=== PATIENT | male | born 1930 | race Caucasian/White ===

== ENCOUNTER 2019-10-03 16:58 | Observation (INO) | payer OTHER ==
[~2019-10-03] VITALS: Ht 175.3 cm; Wt 71.5 kg
[~2019-10-03 16:58] MED LIST: ACET325 PO; ASPI81CH PO; ATOR40TA PO; BENTYL20 MG PO; Bentyl20 MG PO; Colace100 MG PO; Colace250 MG PO; Dicyclomine HCl10 MG PO; Enulose10 GM/15 M PO; GABA100 PO; GLYCAS PR; HYDPAM50 PO; ISOMON20; ISOMON20 PO; METSALMENC; NITR.4SL SL; OMEP20ER PO; OXYC10ER; OXYC5 PO; Protonix40 MG PO; RANI150 PO; SENN187 PO; TAMS.4ER PO; TRIA80TC TOP; VALS80 PO; Zofran Odt4 MG SL; Zovirax400 MG PO
[2019-10-03] MEDS ORDERED: ACET500 PO (17:15)
[2019-10-03] MEDS ORDERED: ATOR40TA PO (17:15)
[2019-10-03] MEDS ORDERED: ASCO500 PO (17:15)
[2019-10-03] MEDS ORDERED: PLAVIX75 MG PO (17:16)
[2019-10-03] MEDS ORDERED: CARB10OTL BOTHEARS (17:16)
[2019-10-03] MEDS ORDERED: ERGO400 PO (17:16)
[2019-10-03] MEDS ORDERED: Dicyclomine HCl10 MG PO (17:17)
[2019-10-03] MEDS ORDERED: Vitamin B-12100 MCG PO (17:17)
[2019-10-03 17:18] LABS: BASOPHILS ABSOLUTE AUTO 0.04 K/mm3 (0.00-0.23); BASOPHILS PERCENT AUTO 1 % (0-2); EOSINOPHILS ABSOLUTE AUTO 0.18 K/mm3 (0.00-0.68); EOSINOPHILS PERCENT AUTO 2 % (0-6); Hematocrit 37.5 % (37.0-53.0); Hemoglobin 11.9 g/dL (13.5-17.5); IMMATURE GRAN ABSOLUTE AUTO 0.02 K/mm3 (0.00-0.10); IMMATURE GRAN PERCENT AUTO 0 % (0-1); LYMPHOCYTES ABSOLUTE AUTO 2.39 K/mm3 (0.84-5.20); LYMPHOCYTES PERCENT AUTO 30 % (21-46); MONOCYTES ABSOLUTE AUTO 0.66 K/mm3 (0.16-1.47); MONOCYTES PERCENT AUTO 8 % (4-13); Mean Corpuscular HGB 30.2 pg (26.0-34.0); Mean Corpuscular HGB Conc 31.7 g/dL (31.5-36.5); Mean Corpuscular Volume 95 fL (80-100); Mean Platelet Volume 10.3 fL (9.1-12.4); NEUTROPHILS ABSOLUTE AUTO 4.79 K/mm3 (1.96-9.15); NEUTROPHILS PERCENT AUTO 59 % (41-73); Platelet Count 149 K/mm3 (150-400); RDW Coefficient Variation 13.4 % (11.7-14.2); RDW Standard Deviation 47.1 fL (35.1-46.3); Red Blood Cell Count 3.94 M/mm3 (4.30-5.90); White Blood Cell Count 8.08 K/mm3 (4.00-11.30)
[2019-10-03] MEDS ORDERED: GABA300 PO ×2 (17:18→17:19)
[2019-10-03] MEDS ORDERED: Flonase 0.05% N16 GM (17:18)
[2019-10-03] MEDS ORDERED: Docusate Sodiu100 M1 PO (17:18)
[2019-10-03] MEDS ORDERED: LOSA25 PO (17:19)
[2019-10-03] MEDS ORDERED: Isosorbide Mono30 MG PO (17:19)
[2019-10-03] MEDS ORDERED: SENN187 PO (17:20)
[2019-10-03] MEDS ORDERED: PANT20 PO (17:20)
[2019-10-03] MEDS ORDERED: Preservision A1 EACH PO (17:20)
[2019-10-03] MEDS ORDERED: SERT25 PO (17:20)
[2019-10-03] MEDS ORDERED: TROSPIUM CHLORI20 MG PO (17:21)
[2019-10-03] MEDS ORDERED: ZOLPIDEM TARTRAT5 MG PO (17:21)
[2019-10-03 17:37] LABS: Alanine Aminotransfer (ALT/SGP 18 U/L (12-78); Albumin, Blood 3.5 g/dL (3.4-5.0); Albumin/Globulin Ratio 1.1 (0.8-1.8); Alk Phos 140 U/L (50-136); Anion Gap 4 mmol/L (6-16); Aspartate Aminotrans (AST/SGOT 27 U/L (12-37); Bilirubin, Total 0.6 mg/dL (0.1-1.0); Blood Urea Nitrogen 22 mg/dL (8-24); Bun/Creatinine Ratio 22.9 (12.0-20.0); CO2, Blood 30 mmol/L (21-32); Calcium, Blood 8.7 mg/dL (8.5-10.1); Chloride, Blood 104 mmol/L (98-108); Creatinine, Blood 0.96 mg/dL (0.60-1.20); Globulin, Blood 3.2 g/dL (2.2-4.0); Glomerular Filtration Rate >60 (60-); Glucose, Blood 88 mg/dL (70-99); Potassium, Blood 4.3 mmol/L (3.5-5.5); Sodium, Blood 138 mmol/L (136-145); Total Protein, Blood 6.7 g/dL (6.4-8.2); Troponin I <0.015 ng/mL (0.000-0.040)
[2019-10-03 17:46] LABS: Source, Urine Clean Catch
[2019-10-03 17:49] LABS: Bilirubin, Urine Neg (Neg); Blood, Urine Neg (Neg); Glucose Qualitative, Urine Neg (Neg); Ketones, Urine Neg (Neg); Leukocyte Esterase, Urine 1+ (Neg); Nitrite, Urine Neg (Neg); Protein, Urine Neg (Neg); Specific Gravity, Urine 1.005 (1.003-1.022); Urobilinogen, Urine NORM (Normal)
[2019-10-03 17:57] LABS: Appearance, Urine Clear (Clear); Color, Urine Yellow (P-Yellow)
[2019-10-03 17:59] LABS: Bacteria Few /hpf; Red Blood Cells, Urine 0-2 /hpf (0-2); Squamous Epithelial Cells Few /hpf (Few); White Blood Cells, Urine 0-2 /hpf (0-5)
[2019-10-03 19:23] LABS: International Normalized Ratio 0.97; Prothrombin Time Results 10.4 Sec (9.7-11.5)
[2019-10-03] MEDS ORDERED: LIDO700A20 TOP (19:24)
[2019-10-03] MEDS ORDERED: TRIA15CR3 TOP (19:25)
[2019-10-03] MEDS ORDERED: NARCAN4 MG (19:26)
[2019-10-03] MEDS ORDERED: VANICREAM453 GM TOP (19:27)
[2019-10-04 03:15] LABS: Anion Gap 3 mmol/L (6-16); Blood Urea Nitrogen 19 mg/dL (8-24); CO2, Blood 31 mmol/L (21-32); Chloride, Blood 108 mmol/L (98-108); Creatinine, Blood 0.83 mg/dL (0.60-1.20); Glomerular Filtration Rate >60 (60-); Glucose, Blood 97 mg/dL (70-99); Potassium, Blood 3.8 mmol/L (3.5-5.5); Sodium, Blood 142 mmol/L (136-145)
[2019-10-05] MEDS ORDERED: CARB10OTL BOTHEARS (15:37)
[2019-10-05] MEDS ORDERED: ALMACONE SUSPE355 ML PO (15:40)
== END 2019-10-05 18:45 | disposition home or self-care (01) ==
LOC: ER 16:58 → PCU 16:59 → MEDS 10-04 11:36
PROVIDERS: Physician Assistant; ADMIT Internal Medicine
DX: I44.0 Atrioventricular block, first degree (principal); R07.9 Chest pain, unspecified; R82.90 Unspecified abnormal findings in urine; I10 Essential (primary) hypertension; E78.5 Hyperlipidemia, unspecified; F32.9 Major depressive disorder, single episode, unspecified; Z86.73 Personal history of transient ischemic attack (TIA), and cerebral infarction without residual deficits; Z88.8 Allergy status to other drugs, medicaments and biological substances; Z79.899 Other long term (current) drug therapy; Z79.02 Long term (current) use of antithrombotics/antiplatelets; Z79.51 Long term (current) use of inhaled steroids
CPT/HCPCS: 36415; 71046; 78452; 80048; 80053; 81001; 84484; 85025; 85610; 85730; 87086; 93005; 93010; 93017; 93306; 96365; 96375; 96376; 99285-25; A9270; A9270-GY; A9500; C9113; G0378; J0696; J0706; J1644; J2785

== ENCOUNTER 2020-07-18 14:23 | Emergency (ER) | payer OTHER ==
[~2020-07-18] VITALS: Ht 175.3 cm; Wt 56.7 kg
[~2020-07-18 14:23] MED LIST changes: +ACET500 PO; +ALMACONE SUSPE355 ML PO; +ASCO500 PO; +CARB10OTL BOTHEARS; +Docusate Sodiu100 M1 PO; +ERGO400 PO; +Flonase 0.05% N16 GM; +GABA300 PO; +Isosorbide Mono30 MG PO; +LIDO700A20 TOP; +LOSA25 PO; +NARCAN4 MG; +PANT20 PO; +PLAVIX75 MG PO; +Preservision A1 EACH PO; +SERT25 PO; +TRIA15CR3 TOP; +TROSPIUM CHLORI20 MG PO; +VANICREAM453 GM TOP; +Vitamin B-12100 MCG PO; +ZOLPIDEM TARTRAT5 MG PO
== END 2020-07-18 16:10 | disposition home or self-care (01) ==
LOC: ER 14:23
DX: T16.2XXA Foreign body in left ear, initial encounter (principal); K21.9 Gastro-esophageal reflux disease without esophagitis; I25.10 Atherosclerotic heart disease of native coronary artery without angina pectoris; Z88.8 Allergy status to other drugs, medicaments and biological substances; Z79.02 Long term (current) use of antithrombotics/antiplatelets; Z79.899 Other long term (current) drug therapy
CPT/HCPCS: 70486; 99283-25

== ENCOUNTER 2021-01-30 13:29 | Emergency (ER) | payer MEDICARE ==
[~2021-01-30] VITALS: Ht 175.3 cm; Wt 65.8 kg
[2021-01-30 14:21] LABS: BASOPHILS ABSOLUTE AUTO 0.02 K/mm3 (0.00-0.23); BASOPHILS PERCENT AUTO 0 % (0-2); EOSINOPHILS ABSOLUTE AUTO 0.06 K/mm3 (0.00-0.68); EOSINOPHILS PERCENT AUTO 1 % (0-6); Hematocrit 40.1 % (37.0-53.0); Hemoglobin 12.6 g/dL (13.5-17.5); IMMATURE GRAN ABSOLUTE AUTO 0.02 K/mm3 (0.00-0.10); IMMATURE GRAN PERCENT AUTO 0 % (0-1); LYMPHOCYTES ABSOLUTE AUTO 1.08 K/mm3 (0.84-5.20); LYMPHOCYTES PERCENT AUTO 14 % (21-46); MONOCYTES PERCENT AUTO 8 % (4-13); Mean Corpuscular HGB 29.3 pg (26.0-34.0); Mean Corpuscular HGB Conc 31.4 g/dL (31.5-36.5); Mean Corpuscular Volume 93 fL (80-100); Mean Platelet Volume 10.2 fL (9.1-12.4); NEUTROPHILS ABSOLUTE AUTO 5.82 K/mm3 (1.96-9.15); NEUTROPHILS PERCENT AUTO 77 % (41-73); Platelet Count 163 K/mm3 (150-400); RDW Coefficient Variation 13.8 % (11.7-14.2); RDW Standard Deviation 46.8 fL (35.1-46.3)
[2021-01-30 14:37] LABS: Alanine Aminotransfer (ALT/SGP 25 U/L (12-78); Albumin, Blood 3.5 g/dL (3.4-5.0); Albumin/Globulin Ratio 0.9 (0.8-1.8); Alk Phos 140 U/L (50-136); Anion Gap 4 mmol/L (6-16); Aspartate Aminotrans (AST/SGOT 24 U/L (12-37); Bilirubin, Total 0.8 mg/dL (0.1-1.0); Blood Urea Nitrogen 17 mg/dL (8-24); Bun/Creatinine Ratio 18.8 (12.0-20.0); CO2, Blood 31 mmol/L (21-32); Calcium, Blood 9.1 mg/dL (8.5-10.1); Chloride, Blood 106 mmol/L (98-108); Globulin, Blood 3.8 g/dL (2.2-4.0); Glomerular Filtration Rate >60 (60-); Glucose, Blood 96 mg/dL (70-99); Potassium, Blood 3.9 mmol/L (3.5-5.5); Sodium, Blood 141 mmol/L (136-145); Total Protein, Blood 7.3 g/dL (6.4-8.2)
[2021-01-30] MEDS ORDERED: DIAZ2 PO (14:50)
== END 2021-01-30 16:09 | disposition home or self-care (01) ==
LOC: ER 13:29
PROVIDERS: Emergency Medicine
DX: G25.3 Myoclonus (principal); I25.10 Atherosclerotic heart disease of native coronary artery without angina pectoris; K21.9 Gastro-esophageal reflux disease without esophagitis; D64.9 Anemia, unspecified; E78.5 Hyperlipidemia, unspecified; Z88.8 Allergy status to other drugs, medicaments and biological substances; Z79.899 Other long term (current) drug therapy; Z79.02 Long term (current) use of antithrombotics/antiplatelets; Z86.73 Personal history of transient ischemic attack (TIA), and cerebral infarction without residual deficits
CPT/HCPCS: 80053; 85025; 99284

== ENCOUNTER 2021-09-09 12:47 | Emergency (ER) | payer OTHER ==
[~2021-09-09] VITALS: Ht 175.3 cm; Wt 65.8 kg
[~2021-09-09 12:47] MED LIST changes: +DIAZ2 PO
[2021-09-09 15:09] LABS: BASOPHILS ABSOLUTE AUTO 0.01 K/mm3 (0.00-0.23); BASOPHILS PERCENT AUTO 0 % (0-2); EOSINOPHILS PERCENT AUTO 0 % (0-6); Hematocrit 39.7 % (37.0-53.0); Hemoglobin 12.5 g/dL (13.5-17.5); IMMATURE GRAN ABSOLUTE AUTO 0.04 K/mm3 (0.00-0.10); IMMATURE GRAN PERCENT AUTO 1 % (0-1); LYMPHOCYTES ABSOLUTE AUTO 1.51 K/mm3 (0.84-5.20); LYMPHOCYTES PERCENT AUTO 18 % (21-46); MONOCYTES PERCENT AUTO 6 % (4-13); Mean Corpuscular HGB 29.8 pg (26.0-34.0); Mean Corpuscular HGB Conc 31.5 g/dL (31.5-36.5); Mean Corpuscular Volume 95 fL (80-100); Mean Platelet Volume 10.3 fL (9.1-12.4); NEUTROPHILS ABSOLUTE AUTO 6.54 K/mm3 (1.96-9.15); NEUTROPHILS PERCENT AUTO 76 % (41-73); Platelet Count 130 K/mm3 (150-400); RDW Coefficient Variation 13.5 % (11.7-14.2); RDW Standard Deviation 46.8 fL (35.1-46.3)
[2021-09-09 15:27] LABS: Alanine Aminotransfer (ALT/SGP 21 U/L (12-78); Albumin, Blood 3.5 g/dL (3.4-5.0); Albumin/Globulin Ratio 0.9 (0.8-1.8); Alk Phos 76 U/L (50-136); Anion Gap 11 mmol/L (6-16); Aspartate Aminotrans (AST/SGOT 37 U/L (12-37); Blood Urea Nitrogen 24 mg/dL (8-24); Bun/Creatinine Ratio 25.1 (12.0-20.0); CO2, Blood 25 mmol/L (21-32); Calcium, Blood 9.3 mg/dL (8.5-10.1); Chloride, Blood 106 mmol/L (98-108); Creatinine, Blood 0.96 mg/dL (0.60-1.20); Globulin, Blood 3.9 g/dL (2.2-4.0); Glomerular Filtration Rate >60 (60-); Glucose, Blood 102 mg/dL (70-99); Potassium, Blood 3.9 mmol/L (3.5-5.5); Sodium, Blood 142 mmol/L (136-145); Total Protein, Blood 7.4 g/dL (6.4-8.2)
[2021-09-09] MEDS ORDERED: NITR.4SL SL (16:29)
[2021-09-09] MEDS ORDERED: MIRALAX17 GM PO (16:30)
== END 2021-09-09 18:45 | disposition home or self-care (01) ==
LOC: ER 12:47
PROVIDERS: Emergency Medicine
DX: K52.9 Noninfective gastroenteritis and colitis, unspecified (principal); K21.9 Gastro-esophageal reflux disease without esophagitis; Z79.899 Other long term (current) drug therapy; Z88.8 Allergy status to other drugs, medicaments and biological substances
CPT/HCPCS: 36415; 71046; 74019; 80053; 83605; 83690; 83880; 84484; 85025; 93005; 93010; 99284-25; J7030